=== PATIENT | male | born 1965 | race Caucasian/White ===

== ENCOUNTER 2016-08-02 10:02 | Inpatient (IN) | payer OTHER ==
[~2016-08-02] VITALS: Ht 190.5 cm; Wt 133.7 kg
[~2016-08-02 10:02] MED LIST: ADVIL,NUPRIN,M200 MG PO; ADVIL200 MG PO; AMLODIPINE BESYL5 MG PO; AMOXICILLIN PO; ASPIR-LOW81 MG PO; ASPIR-TRIN325 M1 PO; ASPIRIN EC325 MG; ASPIRIN325 MG PO; ATENOLOL100 M1 NG; ATORVASTATIN CA40 MG PO; ATORVASTATIN CA80 MG PO; BENZONATATE100 MG PO; BENZONATATE200 MG PO; CARVEDILOL3.125 MG PO; CLOPIDOGREL75 MG PO; COZAAR25 MG PO; CYTOMEL25 MCG PO; DICLOFENAC SODI50 MG PO; EFFIENT10 MG PO; Ecotrin PO; FISH OIL 1,2001 EAC1 PO; FISH OIL SOFTG1 EAC2 PO; FISH OIL SOFTG1 EACH PO; FLEXERIL10 MG PO; FLINTSTONES1 EACH; FLINTSTONES1 TABLET PO; Flexeril PO; GERITOL COMP1 TABLET PO; HYDROCODON-ACE1 EAC7 PO; IMDUR30 MG PO; KEFLEX500 MG PO; LEVO-T200 MCG PO; LEVOTHROID,S0.175 M1 PO; LEVOTHYROXINE175 MCG PO; LEVOTHYROXINE200 MC1 PO; LEVOTHYROXINE50 MCG PO; LIPITOR80 MG PO; LISINOPRIL10 MG PO; LISINOPRIL5 MG PO; LITE COAT ASPI325 M1 PO; LOPID; LOPRESSOR25 MG PO; Levaquin PO; Levothroid,Synthroid PO; Lopressor PO; METOPROLOL TART25 MG PO; MOTRIN600 MG PO; MOTRIN800 MG PO; Motrin PO; NAPRELAN500 MG PO; NEURONTIN300 MG PO; NICOTINE PATCH1 EAC1 TD; NITROSTAT0.4 MG SL; NORCO 5/3251 TABLET PO; PEPCID20 MG PO; PERCOCET 5/31 TABLET PO; PLAVIX75 MG PO; POTASSIUM99 MG PO; PRAVACHOL40 MG PO; PRAVASTATIN SOD40 MG PO; PRINIVIL5 MG PO; Percocet 5/325,Endoc PO; Plavix PO; Pravachol PO; SIMVASTATIN; ST JOSEPH ASPIR81 M2 PO; SYNTHROID100 MCG PO; SYNTHROID175 MCG PO; SYNTHROID200 MCG PO; TRAMADOL HCL50 MG PO; TUSSIN100 MG/5 M PO; VALIUM5 MG PO; VITAMIN C100 MG PO; ZESTRIL,PRINIV2.5 MG PO; ZESTRIL5 MG PO; Zestril,Prinivil PO; [UNRECOGNIZED DRUG - OTHER] PO
[2016-08-02 10:39] LABS: HEMATOCRIT 43.1 % (38.0-50.0); MCHC 35.3 G/DL (30.0-36.0); MCV 90.7 FL (86-99); MEAN PLAT.VOLUME 9.1 uM^3 (9.0-12.4); PLATELET COUNT 309 K/uL (156-360); RBC DIS.WIDTH-CV 13.1 % (11.8-14.6); RBC DIS.WIDTH-SD 42.6 % (39-53); RED BLOOD COUNT 4.75 M/uL (4.00-5.50)
[2016-08-02 11:00] LABS: ANION GAP 13 MEQ/L (2-14); CHLORIDE 106 mEq/L (99-109); GFR ESTIMATE (CALCULATED) > 59 mL/min/; GLUCOSE 150 mg/dL (70-99); POTASSIUM 3.7 mEq/L (3.7-5.4); SODIUM 140 mEq/L (136-147)
[2016-08-02 11:01] LABS: UREA NITROGEN (BUN) 14 mg/dL (9-23)
[2016-08-02 11:04] LABS: TROP-I INTERPRETATION INDETERMINATE; TROPONIN-I 0.45 ng/mL (0.0-0.30)
[2016-08-02 11:06] LABS: BASOPHIL COUNT 0.1 K/uL (0-0.1); EOSINOPHIL (%) 2.5 % (0-5); EOSINOPHIL COUNT 0.3 K/uL (0-0.3); IMMATURE GRANULOCYTE (%) 0.4 % (0.0-0.7); IMMATURE GRANULOCYTE COUNT 0.5 K/uL; LYMPHOCYTE COUNT 3.2 K/uL (1.0-2.8); MONOCYTE (%) 8.4 % (3-12); MONOCYTE COUNT 1.1 K/uL (0-0.8); NEUTROPHIL (%) 63.4 % (45-76); NEUTROPHIL COUNT 8.3 K/uL (1.8-6.4)
[2016-08-02 11:13] LABS: TOTAL BILIRUBIN 0.8 mg/dL (0.0-1.0)
[2016-08-02 11:14] LABS: ALKALINE PHOSPHATASE 72 IU/L (3-129)
[2016-08-02 11:16] LABS: DIRECT BILIRUBIN 0.3 mg/dL (0.0-0.3)
[2016-08-02] MEDS ORDERED: EFFIENT10 MG PO (14:51)
[2016-08-02] MEDS ORDERED: LIPITOR80 MG PO (14:52)
[2016-08-02] MEDS ORDERED: TYLENOL REGULA325 MG PO (14:53)
[2016-08-02] MEDS ORDERED: ADVIL200 MG PO (14:54)
[2016-08-02 15:15] VITALS: BP 123/64
[2016-08-02 17:18] LABS: TROP-I INTERPRETATION INDETERMINATE; TROPONIN-I 0.35 ng/mL (0.0-0.30)
[2016-08-02 20:32] VITALS: BP 116/63
[2016-08-02 22:15] LABS: POINT-OF-CARE METER ID UU13113831
[2016-08-02 23:09] LABS: TROP-I INTERPRETATION INDETERMINATE; TROPONIN-I 0.33 ng/mL (0.0-0.30)
[2016-08-02 23:46] VITALS: BP 132/69
[2016-08-03 04:06] VITALS: BP 141/71
[2016-08-03 06:38] LABS: ANION GAP 7 MEQ/L (2-14); CHLORIDE 102 MEQ/L (99-109); GFR ESTIMATE (CALCULATED) > 59 mL/min/; GLUCOSE 114 mg/dL (70-99); SAMPLE HEMOLYSIS CHECK 2; SAMPLE ICTERIC CHECK 0; SAMPLE LIPEMIA CHECK 0; SODIUM 138 MEQ/L (136-147); UREA NITROGEN (BUN) 17 mg/dL (9-23)
[2016-08-03 06:39] LABS: POTASSIUM 4.6 MEQ/L (3.7-5.4)
[2016-08-03 08:22] LABS: POINT-OF-CARE METER ID UU14162513
[2016-08-03 12:01] VITALS: BP 141/65
[2016-08-03 12:22] LABS: EOSINOPHIL (%) 4.3 % (0-5); EOSINOPHIL COUNT 0.4 K/uL (0-0.3); HEMATOCRIT 39.8 % (38.0-50.0); IMMATURE GRANULOCYTE (%) 0.4 % (0.0-0.7); LYMPHOCYTE COUNT 3.1 K/uL (1.0-2.8); MCH 32.2 PG (29.0-34.0); MCHC 34.2 G/DL (30.0-36.0); MCV 94.3 FL (86-99); MEAN PLAT.VOLUME 9.6 uM^3 (9.0-12.4); MONOCYTE (%) 7.5 % (3-12); MONOCYTE COUNT 0.6 K/uL (0-0.8); NEUTROPHIL (%) 49.4 % (45-76); NEUTROPHIL COUNT 4.1 K/uL (1.8-6.4); PLATELET COUNT 248 K/uL (156-360); RBC DIS.WIDTH-CV 13.4 % (11.8-14.6); RBC DIS.WIDTH-SD 45.9 % (39-53); RED BLOOD COUNT 4.22 M/uL (4.00-5.50); WHITE BLOOD COUNT 8.2 K/uL (4.1-10.2)
[2016-08-03 16:16] VITALS: BP 141/73
[2016-08-03 16:46] LABS: PROTHROMBIN TIME 10.1 (9.2-11.2); PTT 24.1 (25-32)
[2016-08-03 19:57] VITALS: BP 143/75
[2016-08-04 05:07] VITALS: BP 156/73
[2016-08-04 08:07] VITALS: BP 143/78
[2016-08-04 10:38] LABS: ANION GAP 8 MEQ/L (2-14); CHLORIDE 103 MEQ/L (99-109); POTASSIUM 4.1 MEQ/L (3.7-5.4); SAMPLE HEMOLYSIS CHECK 0; SAMPLE ICTERIC CHECK 0; SAMPLE LIPEMIA CHECK 0; SODIUM 136 MEQ/L (136-147)
[2016-08-04 10:44] LABS: GFR ESTIMATE (CALCULATED) > 59 mL/min/; GLUCOSE 171 mg/dL (70-99); UREA NITROGEN (BUN) 13 mg/dL (9-23)
[2016-08-04 10:47] LABS: TROP-I INTERPRETATION NEGATIVE; TROPONIN-I 0.17 ng/mL (0.0-0.30)
[2016-08-04 12:32] VITALS: BP 161/79
[2016-08-04 15:00] VITALS: BP 146/78
[2016-08-04 20:56] VITALS: BP 153/72
[2016-08-04 23:59] VITALS: BP 152/80
[2016-08-05 04:25] VITALS: BP 153/78
[2016-08-05 06:21] LABS: HEMATOCRIT 42.6 % (38.0-50.0); MCH 32.1 PG (29.0-34.0); MCHC 33.8 G/DL (30.0-36.0); MCV 95.1 FL (86-99); PLATELET COUNT 267 K/uL (156-360); RBC DIS.WIDTH-CV 13.2 % (11.8-14.6); RBC DIS.WIDTH-SD 45.9 % (39-53); RED BLOOD COUNT 4.48 M/uL (4.00-5.50); WHITE BLOOD COUNT 10.6 K/uL (4.1-10.2)
[2016-08-05 06:38] LABS: HDL CHOLESTEROL 24 MG/DL (Desirable>=40); LDL CHOLESTEROL 63 mg/dL (Desirable<100); NON-HDL CHOLESTEROL 106 mg/dL (Desirable<160); TOTAL CHOLESTEROL 130 mg/dL (Desirable<200); TRIGLYCERIDES 214 MG/DL (Normal: <150)
[2016-08-05 08:35] VITALS: BP 165/84
[2016-08-05] MEDS ORDERED: RANEXA500 MG PO (12:59)
[2016-08-05] MEDS ORDERED: CRESTOR40 MG PO (12:59)
[2016-08-05] MEDS ORDERED: CARVEDILOL3.125 MG PO (12:59)
[2016-08-05] MEDS ORDERED: AFRIN,GENASAL D15 ML BOTH NARES (23:20)
== END 2016-08-05 13:58 | disposition home or self-care (01) | DRG 311 ==
LOC: EME 10:02 → EDOF 13:50 → 5WEST 13:50
PROVIDERS: Hospitalist; Internal Medicine; Nurse Practitioner Family; Student in an Organized Health Care Education/Training Program
DX: I20.0 Unstable angina (principal); E78.5 Hyperlipidemia, unspecified; I25.2 Old myocardial infarction; E03.9 Hypothyroidism, unspecified; J45.909 Unspecified asthma, uncomplicated; F32.9 Major depressive disorder, single episode, unspecified; G89.29 Other chronic pain; E66.9 Obesity, unspecified; K21.9 Gastro-esophageal reflux disease without esophagitis; I10 Essential (primary) hypertension; F17.210 Nicotine dependence, cigarettes, uncomplicated; I25.10 Atherosclerotic heart disease of native coronary artery without angina pectoris; I51.9 Heart disease, unspecified; E11.9 Type 2 diabetes mellitus without complications; R07.89 Other chest pain; Q25.0 Patent ductus arteriosus; R00.1 Bradycardia, unspecified; Z79.82 Long term (current) use of aspirin; Z95.5 Presence of coronary angioplasty implant and graft; Z88.6 Allergy status to analgesic agent; Z88.8 Allergy status to other drugs, medicaments and biological substances; Z95.1 Presence of aortocoronary bypass graft; Z68.36 Body mass index [BMI] 36.0-36.9, adult
CPT/HCPCS: 71020; 80048; 80061; 80076; 82948; 84484; 85025; 85027; 85379; 85610; 85730; 93005; 93306; 99281; 99285; G0378; J1170; J1815; J2405

== ENCOUNTER 2016-08-05 17:56 | Inpatient (IN) | payer OTHER ==
[~2016-08-05] VITALS: Ht 190.5 cm; Wt 134.0 kg
[~2016-08-05 17:56] MED LIST changes: +CRESTOR40 MG PO; +RANEXA500 MG PO; +TYLENOL REGULA325 MG PO
[2016-08-05 19:06] LABS: HEMATOCRIT 44.9 % (38.0-50.0); MCH 31.8 PG (29.0-34.0); MCHC 34.7 G/DL (30.0-36.0); MCV 91.6 FL (86-99); MEAN PLAT.VOLUME 9.5 uM^3 (9.0-12.4); PLATELET COUNT 312 K/uL (156-360); RBC DIS.WIDTH-CV 12.9 % (11.8-14.6); RBC DIS.WIDTH-SD 42.5 % (39-53); WHITE BLOOD COUNT 12.2 K/uL (4.1-10.2)
[2016-08-05 19:13] LABS: CHLORIDE 104 mEq/L (99-109); POTASSIUM 4.3 mEq/L (3.7-5.4); SODIUM 137 mEq/L (136-147)
[2016-08-05 19:15] LABS: GLUCOSE 159 mg/dL (70-99)
[2016-08-05 19:16] LABS: ANION GAP 12 MEQ/L (2-14)
[2016-08-05 19:19] LABS: GFR ESTIMATE (CALCULATED) > 59 mL/min/
[2016-08-05 19:20] LABS: UREA NITROGEN (BUN) 12 mg/dL (9-23)
[2016-08-05 19:22] LABS: TROP-I INTERPRETATION NEGATIVE
[2016-08-05] MEDS ORDERED: AFRIN,GENASAL D15 ML BOTH NARES (23:20)
[2016-08-06 01:55] LABS: TOTAL BILIRUBIN 0.7 mg/dL (0.0-1.0)
[2016-08-06 01:56] LABS: ALKALINE PHOSPHATASE 67 IU/L (3-129)
[2016-08-06 01:58] LABS: DIRECT BILIRUBIN 0.3 mg/dL (0.0-0.3)
[2016-08-06 02:00] LABS: LIPASE 46 U/L (1.0-51.0)
[2016-08-06 02:03] LABS: TROP-I INTERPRETATION NEGATIVE; TROPONIN-I 0.06 ng/mL (0.0-0.30)
[2016-08-06 04:09] VITALS: BP 138/78
[2016-08-06 07:00] VITALS: BP 124/65
[2016-08-06 09:13] LABS: TROP-I INTERPRETATION NEGATIVE; TROPONIN-I 0.06 ng/mL (0.0-0.30)
[2016-08-06 11:25] VITALS: BP 131/75
[2016-08-06 13:15] VITALS: BP 143/70
[2016-08-06 16:05] VITALS: BP 134/76
[2016-08-07 04:17] VITALS: BP 110/64
[2016-08-07 06:59] LABS: EOSINOPHIL (%) 3.7 % (0-5); EOSINOPHIL COUNT 0.5 K/uL (0-0.3); HEMATOCRIT 42.2 % (38.0-50.0); IMMATURE GRANULOCYTE (%) 0.6 % (0.0-0.7); IMMATURE GRANULOCYTE COUNT 0.1 K/uL; LYMPHOCYTE COUNT 3.4 K/uL (1.0-2.8); MCH 32.4 PG (29.0-34.0); MCHC 34.4 G/DL (30.0-36.0); MCV 94.4 FL (86-99); MEAN PLAT.VOLUME 10.1 uM^3 (9.0-12.4); MONOCYTE (%) 7.2 % (3-12); MONOCYTE COUNT 0.9 K/uL (0-0.8); NEUTROPHIL (%) 60.9 % (45-76); NEUTROPHIL COUNT 7.6 K/uL (1.8-6.4); PLATELET COUNT 245 K/uL (156-360); RBC DIS.WIDTH-CV 13.2 % (11.8-14.6); RBC DIS.WIDTH-SD 45.6 % (39-53); RED BLOOD COUNT 4.47 M/uL (4.00-5.50); WHITE BLOOD COUNT 12.4 K/uL (4.1-10.2)
[2016-08-07 07:00] VITALS: BP 115/63
[2016-08-07 07:30] LABS: ANION GAP 10 MEQ/L (2-14); CHLORIDE 103 MEQ/L (99-109); GFR ESTIMATE (CALCULATED) > 59 mL/min/; GLUCOSE 114 mg/dL (70-99); POTASSIUM 4.4 MEQ/L (3.7-5.4); SAMPLE HEMOLYSIS CHECK 0; SAMPLE ICTERIC CHECK 0; SAMPLE LIPEMIA CHECK 0; SODIUM 137 MEQ/L (136-147); UREA NITROGEN (BUN) 15 mg/dL (9-23)
[2016-08-07 11:00] VITALS: BP 119/64
[2016-08-07] MEDS ORDERED: LOSARTAN POTASS50 MG PO (13:39)
[2016-08-07] MEDS ORDERED: CRESTOR40 MG PO (13:39)
[2016-08-07] MEDS ORDERED: IMDUR30 MG PO (13:39)
[2016-08-07] MEDS ORDERED: FIORICET,ESG1 TABLET PO (13:39)
[2016-08-07] MEDS ORDERED: NITROSTAT0.4 MG SL (13:39)
[2016-08-08] MEDS ORDERED: IBUPROFEN200 M1 PO (09:22)
[2016-08-08] MEDS ORDERED: TYLENOL REGULA325 MG PO (09:23)
== END 2016-08-07 15:00 | disposition home or self-care (01) | DRG 302 ==
LOC: EME 17:56 → EDOF 23:16 → 4EAST 23:16
PROVIDERS: Hospitalist; Internal Medicine
DX: I25.110 Atherosclerotic heart disease of native coronary artery with unstable angina pectoris (principal); I50.21 Acute systolic (congestive) heart failure; I10 Essential (primary) hypertension; E03.9 Hypothyroidism, unspecified; I25.2 Old myocardial infarction; Z95.1 Presence of aortocoronary bypass graft; Z95.5 Presence of coronary angioplasty implant and graft; E66.9 Obesity, unspecified; Z68.36 Body mass index [BMI] 36.0-36.9, adult; J45.909 Unspecified asthma, uncomplicated; F32.9 Major depressive disorder, single episode, unspecified; G43.909 Migraine, unspecified, not intractable, without status migrainosus; F17.210 Nicotine dependence, cigarettes, uncomplicated; Z71.6 Tobacco abuse counseling; E78.5 Hyperlipidemia, unspecified
CPT/HCPCS: 71020; 71275; 80048; 80076; 83690; 84484; 85025; 85027; 93005; 99281; 99285; J1170; J3010

== ENCOUNTER 2016-08-08 07:52 | Emergency (ER) | payer OTHER ==
[~2016-08-08] VITALS: Ht 190.5 cm; Wt 126.1 kg
[~2016-08-08 07:52] MED LIST changes: +AFRIN,GENASAL D15 ML BOTH NARES; +FIORICET,ESG1 TABLET PO; +LOSARTAN POTASS50 MG PO
[2016-08-08 08:19] LABS: HEMATOCRIT 43.3 % (38.0-50.0); MCH 32.3 PG (29.0-34.0); MCHC 34.9 G/DL (30.0-36.0); MCV 92.5 FL (86-99); MEAN PLAT.VOLUME 9.5 uM^3 (9.0-12.4); PLATELET COUNT 295 K/uL (156-360); RBC DIS.WIDTH-CV 12.9 % (11.8-14.6); RBC DIS.WIDTH-SD 42.6 % (39-53); RED BLOOD COUNT 4.68 M/uL (4.00-5.50); WHITE BLOOD COUNT 13.1 K/uL (4.1-10.2)
[2016-08-08 08:37] LABS: CHLORIDE 107 mEq/L (99-109); POTASSIUM 3.8 mEq/L (3.7-5.4); SODIUM 139 mEq/L (136-147)
[2016-08-08 08:40] LABS: ANION GAP 10 MEQ/L (2-14)
[2016-08-08 08:41] LABS: GLUCOSE 184 mg/dL (70-99)
[2016-08-08 08:43] LABS: GFR ESTIMATE (CALCULATED) > 59 mL/min/
[2016-08-08 08:44] LABS: UREA NITROGEN (BUN) 21 mg/dL (9-23)
[2016-08-08 08:45] LABS: TROP-I INTERPRETATION NEGATIVE; TROPONIN-I 0.02 ng/mL (0.0-0.30)
[2016-08-08] MEDS ORDERED: IBUPROFEN200 M1 PO (09:22)
[2016-08-08] MEDS ORDERED: TYLENOL REGULA325 MG PO (09:23)
[2016-08-08 09:52] LABS: ADD MIUA? YES; BILIRUBIN NEGATIVE; BLOOD NEGATIVE; COLOR YELLOW ((YELLOW)); GLUCOSE (STRIP) NEGATIVE; KETONES TRACE; LEUKOCYTES MODERATE; NITRITE NEGATIVE; PROTEIN (STRIP) 30; UROBILINOGEN 0.2 MG/DL (0.2-1.0)
[2016-08-08 10:17] LABS: BACTERIA NONE SEEN /HPF; CASTS NONE SEEN /LPF; CRYSTALS NONE SEEN; EPITHELIAL CELLS RARE /HPF; MUCUS NONE SEEN /LPF; RED BLOOD CELLS NONE SEEN /HPF (0-5); UCUL ADDED? NO
[2016-08-08 10:37] LABS: TROP-I INTERPRETATION NEGATIVE; TROPONIN-I 0.02 ng/mL (0.0-0.30)
[2016-08-08 11:37] VITALS: BP 150/90
== END 2016-08-08 11:49 | disposition home or self-care (01) ==
LOC: EME → EDBD 07:52 → EME 11:49
PROVIDERS: Emergency Medicine
DX: R07.9 Chest pain, unspecified (principal); J45.909 Unspecified asthma, uncomplicated; E78.5 Hyperlipidemia, unspecified; I10 Essential (primary) hypertension; I25.2 Old myocardial infarction; K21.9 Gastro-esophageal reflux disease without esophagitis; E03.9 Hypothyroidism, unspecified; Z95.1 Presence of aortocoronary bypass graft; Z79.82 Long term (current) use of aspirin; F17.200 Nicotine dependence, unspecified, uncomplicated
CPT/HCPCS: 71010; 80048; 81003; 84484; 85027; 93005; 99281; 99285

== ENCOUNTER 2016-12-01 00:04 | Emergency (ER) | payer OTHER ==
[~2016-12-01] VITALS: Ht 190.5 cm; Wt 125.5 kg
[~2016-12-01 00:04] MED LIST changes: +IBUPROFEN200 M1 PO
[2016-12-01 00:40] LABS: HEMATOCRIT 40.6 % (38.0-50.0); MCH 30.5 PG (29.0-34.0); MCHC 33.5 G/DL (30.0-36.0); MEAN PLAT.VOLUME 9.9 uM^3 (9.0-12.4); PLATELET COUNT 280 K/uL (156-360); RBC DIS.WIDTH-CV 12.7 % (11.8-14.6); RBC DIS.WIDTH-SD 41.7 % (39-53); RED BLOOD COUNT 4.46 M/uL (4.00-5.50); WHITE BLOOD COUNT 8.6 K/uL (4.1-10.2)
[2016-12-01 00:47] LABS: CHLORIDE 108 mEq/L (99-109); POTASSIUM 3.7 mEq/L (3.7-5.4); SODIUM 140 mEq/L (136-147)
[2016-12-01 00:50] LABS: GLUCOSE 131 mg/dL (70-99)
[2016-12-01 00:51] LABS: ANION GAP 8 MEQ/L (2-14)
[2016-12-01 00:52] LABS: TOTAL BILIRUBIN 0.6 mg/dL (0.0-1.0)
[2016-12-01 00:53] LABS: ALKALINE PHOSPHATASE 61 IU/L (3-129)
[2016-12-01 00:54] LABS: GFR ESTIMATE (CALCULATED) > 59 mL/min/
[2016-12-01 00:55] LABS: DIRECT BILIRUBIN 0.2 mg/dL (0.0-0.3); UREA NITROGEN (BUN) 10 mg/dL (9-23)
[2016-12-01 00:57] LABS: LIPASE 50 U/L (1.0-51.0)
[2016-12-01 01:12] LABS: ADD MIUA? NO; BILIRUBIN NEGATIVE; BLOOD NEGATIVE; COLOR STRAW ((YELLOW)); GLUCOSE (STRIP) NEGATIVE; KETONES NEGATIVE; LEUKOCYTES NEGATIVE; NITRITE NEGATIVE; PROTEIN (STRIP) NEGATIVE; SPECIFIC GRAVITY 1.006 (1.000-1.030); UCUL ADDED? NO; UROBILINOGEN 0.2 MG/DL (0.2-1.0)
[2016-12-01 01:55] VITALS: BP 139/78
== END 2016-12-01 01:57 | disposition home or self-care (01) ==
LOC: EME → EDBD 00:04 → EME 00:04
PROVIDERS: Emergency Medicine
DX: R10.31 Right lower quadrant pain (principal); R31.9 Hematuria, unspecified; R94.31 Abnormal electrocardiogram [ECG] [EKG]; Z90.49 Acquired absence of other specified parts of digestive tract; E03.9 Hypothyroidism, unspecified; Z79.02 Long term (current) use of antithrombotics/antiplatelets; Z79.82 Long term (current) use of aspirin; Z95.1 Presence of aortocoronary bypass graft; F17.200 Nicotine dependence, unspecified, uncomplicated
CPT/HCPCS: 74176; 80048; 80076; 81003; 83690; 85027; 87086; 93005; 99281; 99285; J1885; J2405; J7030; J7050

== ENCOUNTER 2017-02-27 23:44 | Observation (INO) | payer OTHER ==
[~2017-02-27] VITALS: Ht 190.5 cm; Wt 128.5 kg
[2017-02-28 00:18] LABS: HEMATOCRIT 37.5 % (38.0-50.0); MCH 30.9 PG (29.0-34.0); MCHC 33.9 G/DL (30.0-36.0); MCV 91.2 FL (86-99); MEAN PLAT.VOLUME 9.4 uM^3 (9.0-12.4); PLATELET COUNT 260 K/uL (156-360); RBC DIS.WIDTH-SD 47.4 % (39-53); RED BLOOD COUNT 4.11 M/uL (4.00-5.50); WHITE BLOOD COUNT 9.5 K/uL (4.1-10.2)
[2017-02-28 00:27] LABS: CHLORIDE 109 mEq/L (99-109); POTASSIUM 3.8 mEq/L (3.7-5.4); SODIUM 141 mEq/L (136-147)
[2017-02-28 00:29] LABS: GLUCOSE 108 mg/dL (70-99)
[2017-02-28 00:31] LABS: ANION GAP 9 MEQ/L (2-14)
[2017-02-28 00:33] LABS: GFR ESTIMATE (CALCULATED) > 59 mL/min/
[2017-02-28 00:34] LABS: UREA NITROGEN (BUN) 15 mg/dL (9-23)
[2017-02-28 00:40] LABS: TROP-I INTERPRETATION NEGATIVE; TROPONIN-I < 0.01 ng/mL (0.0-0.30)
[2017-02-28 05:04] VITALS: BP 140/79
[2017-02-28 08:34] LABS: MCHC 34.5 G/DL (30.0-36.0); MCV 92.7 FL (86-99); MEAN PLAT.VOLUME 9.4 uM^3 (9.0-12.4); PLATELET COUNT 248 K/uL (156-360); RBC DIS.WIDTH-CV 14.2 % (11.8-14.6); RBC DIS.WIDTH-SD 48.3 % (39-53); WHITE BLOOD COUNT 8.4 K/uL (4.1-10.2)
[2017-02-28 08:52] LABS: TROP-I INTERPRETATION NEGATIVE; TROPONIN-I < 0.01 ng/mL (0.0-0.30)
[2017-02-28 08:59] LABS: ALKALINE PHOSPHATASE 61 IU/L (3-129); ANION GAP 6 MEQ/L (2-14); CHLORIDE 108 MEQ/L (99-109); GFR ESTIMATE (CALCULATED) > 59 mL/min/; GLUCOSE 154 mg/dL (70-99); POTASSIUM 3.8 MEQ/L (3.7-5.4); SAMPLE HEMOLYSIS CHECK 0; SAMPLE ICTERIC CHECK 0; SAMPLE LIPEMIA CHECK 0; SODIUM 141 MEQ/L (136-147); UREA NITROGEN (BUN) 12 mg/dL (9-23)
[2017-02-28 09:02] LABS: TOTAL BILIRUBIN 0.5 MG/DL (0.0-1.0)
[2017-02-28 09:22] VITALS: BP 123/68
[2017-02-28] MEDS ORDERED: CARVEDILOL6.25 MG PO (09:25)
[2017-02-28] MEDS ORDERED: ASPIRIN81 M2 PO (09:26)
[2017-02-28] MEDS ORDERED: RANEXA500 MG PO (11:11)
[2017-02-28 11:56] VITALS: BP 106/59
[2017-02-28 12:10] LABS: TROP-I INTERPRETATION NEGATIVE; TROPONIN-I < 0.01 ng/mL (0.0-0.30)
== END 2017-02-28 15:01 | disposition home or self-care (01) ==
LOC: EME 23:44 → EDOF 02-28 03:18 → 5WEST 02-28 03:18 → ENRESERV 02-28 03:19 → 5WEST 02-28 04:49 → ENPENDDIS 02-28 14:00 → 5WEST 02-28 15:01
PROVIDERS: Hospitalist; Internal Medicine
DX: R07.89 Other chest pain (principal); I10 Essential (primary) hypertension; E78.5 Hyperlipidemia, unspecified; E03.9 Hypothyroidism, unspecified; I25.10 Atherosclerotic heart disease of native coronary artery without angina pectoris; Z95.1 Presence of aortocoronary bypass graft; Z95.5 Presence of coronary angioplasty implant and graft; K21.9 Gastro-esophageal reflux disease without esophagitis; G47.33 Obstructive sleep apnea (adult) (pediatric); I65.22 Occlusion and stenosis of left carotid artery; J45.909 Unspecified asthma, uncomplicated; F32.9 Major depressive disorder, single episode, unspecified; E66.9 Obesity, unspecified; Z68.35 Body mass index [BMI] 35.0-35.9, adult; Z90.49 Acquired absence of other specified parts of digestive tract; F17.200 Nicotine dependence, unspecified, uncomplicated; Z82.49 Family history of ischemic heart disease and other diseases of the circulatory system; Z80.9 Family history of malignant neoplasm, unspecified; Z88.8 Allergy status to other drugs, medicaments and biological substances; Z79.82 Long term (current) use of aspirin
CPT/HCPCS: 71020; 80048; 80053; 84484; 85027; 85379; 93005; 99281; 99285; G0378; J1170